=== PATIENT | male | born 1965 | race American Indian/Alaskan Native ===

== ENCOUNTER 2017-03-27 23:20 | Emergency (ER) | payer MEDICAID ==
[2017-03-27 23:26] VITALS: PULSE 65; RESP 16; TEMP 98; O2SAT 100
--- NOTE | 2017-03-27 23:51 | ED PDOC ---
HPI: General Adult Time Seen by Provider: 03/27/17 23:32 Chief Complaint (Nursing): Medical Clearance Chief Complaint (Provider): clearance for incarceration History Per: Patient History/Exam Limitations: no limitations Additional History Per: Patient Additional Complaint(s): 51 y/o male history of heroin abuse (on suboxone) here in police custody for clearance for incarceration. Patient denies acute medical or psychiatric complaints. Past Medical History Reviewed: Historical Data, Nursing Documentation, Vital Signs Vital Signs: Last Vital Signs Temp 98.0 F 03/27/17 23:21 Pulse 65 03/27/17 23:21 Resp 16 03/27/17 23:21 BP 155/87 H 03/27/17 23:21 Pulse Ox 100 03/27/17 23:21 - Medical History PMH: No Chronic Diseases - Surgical History Surgical History: No Surg Hx - Family History Family History: States: No Known Family Hx - Social History Ex-Smoker (has not smoked in the last 12 months): Yes Alcohol: None Drugs: Opiates, Prescription medications - Allergies Allergies/Adverse Reactions: Allergies Allergy/AdvReac Type Severity Reaction Status Date / Time No Known Allergies Allergy Verified 03/27/17 23:21 Review of Systems ROS Statement: Except As Marked, All Systems Reviewed And Found Negative Physical Exam - Reviewed Nursing Documentation Reviewed: Yes Vital Signs Reviewed: Yes - Physical Exam Appears: Positive for: Well, Non-toxic, No Acute Distress Head Exam: Positive for: ATRAUMATIC, NORMAL INSPECTION, NORMOCEPHALIC Skin: Positive for: Normal Color Eye Exam: Positive for: Normal appearance ENT: Positive for: Normal ENT Inspection Cardiovascular/Chest: Positive for: Regular Rate, Rhythm Respiratory: Positive for: Normal Breath Sounds Gastrointestinal/Abdominal: Positive for: Normal Exam Back: Positive for: Normal Inspection Extremity: Positive for: Normal ROM Neurologic/Psych: Positive for: Alert, Oriented - ECG O2 Sat by Pulse Oximetry: 100 Disposition - Clinical Impression Clinical Impression: Medical clearance for incarceration - Patient ED Disposition Is Patient to be Admitted: No Counseled Patient/Family Regarding: Diagnosis, Need For Followup - Disposition Disposition: Routine/Home Disposition Time: 23:52 Condition: STABLE Additional Instructions: Patient medically cleared for incarceration. Instructions: Normal Exam (ED)
[2017-03-28 00:03] VITALS: BP 149/82
== END 2017-03-27 23:56 ==
LOC: EDBD 23:20 → H.ER 23:20
DX: F11.10 Opioid abuse, uncomplicated (principal); Z02.89 Encounter for other administrative examinations; Z87.891 Personal history of nicotine dependence

== ENCOUNTER 2018-02-02 13:46 | Emergency (ER) | payer MEDICAID ==
[2018-02-02 13:53] VITALS: PULSE 59; RESP 18; TEMP 98.1; O2SAT 98
--- NOTE | 2018-02-02 13:53 | ED PDOC ---
HPI: Psych/Substance Abuse Time Seen by Provider: 02/02/18 13:52 Chief Complaint (Provider): clearance History Per: Patient, Other (Police) Additional Complaint(s): 52-year-old male presents to emergency department in police custody for medical and psychiatric clearance. Patient denies any medical or psychiatric complaints at this time. Patient states he is prescribed suboxone and would like to take a dose now. Patient states he has the medication on him and is due for his usual dose at 2 pm. He denies any opiate use, states he has been on suboxone for 2 years and has not used opiates in 2 years. Past Medical History Reviewed: Historical Data, Nursing Documentation, Vital Signs Vital Signs: Last Vital Signs Temp 98.1 F 02/02/18 13:49 Pulse 59 L 02/02/18 13:49 Resp 18 02/02/18 13:49 BP 137/101 H 02/02/18 13:49 Pulse Ox 98 02/02/18 13:49 - Medical History PMH: No Chronic Diseases - Family History Family History: States: No Known Family Hx - Social History Current smoker - smoking cessation education provided: Yes Alcohol: None Drugs: Opiates (h/o abuse, now on suboxone) - Allergies Allergies/Adverse Reactions: Allergies Allergy/AdvReac Type Severity Reaction Status Date / Time No Known Allergies Allergy Verified 02/02/18 13:49 Review of Systems ROS Statement: Except As Marked, All Systems Reviewed And Found Negative Constitutional: Negative for: Fever Cardiovascular: Negative for: Chest Pain Respiratory: Negative for: Cough Gastrointestinal: Negative for: Nausea, Vomiting Psych: Negative for: Suicidal ideation Physical Exam - Reviewed Nursing Documentation Reviewed: Yes Vital Signs Reviewed: Yes - Physical Exam Appears: Positive for: Well, Non-toxic, No Acute Distress Head Exam: Positive for: ATRAUMATIC, NORMAL INSPECTION, NORMOCEPHALIC Skin: Positive for: Normal Color. Negative for: Rash Eye Exam: Positive for: Other (pinpoint pupils) ENT: Positive for: Normal ENT Inspection Cardiovascular/Chest: Positive for: Regular Rate, Rhythm Respiratory: Positive for: Normal Breath Sounds. Negative for: Respiratory Distress Gastrointestinal/Abdominal: Positive for: Normal Exam, Soft. Negative for: Tenderness Extremity: Positive for: Normal ROM Neurologic/Psych: Positive for: Alert, Oriented - ECG O2 Sat by Pulse Oximetry: 98 Pulse Ox Interpretation: Normal Medical Decision Making Medical Decision Makin52 year old here for medical and psychiatric clearance. Plan: Crisis eval As per crisis counselor and psychiatrist detention sergeant Dr. Diaz, patient does not meet criteria for admission and is stable for discharge. On exam patient is falling asleep while being asked questions and is noted to have pinpoint pupils upon examination, which is concerning for possible recent drug abuse. Patient is asking for suboxone dose which he arrives with. Rx box reviewed, rx was filled yesterday for quantity of 60, however box only contains 16 doses. Patient states he takes one dose per day and took his last dose yesterday afternoon. Case was d/w in detail with ED attending, Dr. Lawrence. Ordering UDS was considered however, results are often inconclusive when a patient takes suboxone, therefore in this case there is little diagnostic value to be obtained from UDS. Patient is stable, is not displaying any acute signs of withdrawal. Dr. Lawrence agrees that no suboxone will be given to patient today in ED. Patient was informed of this and was escorted out in police custody. Patient is stable for discharge. Disposition - Clinical Impression Clinical Impression: Substance abuse, Medical clearance for incarceration - Patient ED Disposition Is Patient to be Admitted: No - Disposition Referrals: [facility] [Outside] Disposition: Routine/Home Disposition Time: 14:32 Condition: STABLE Additional Instructions: PATIENT IS MEDICALLY AND PSYCHIATRICALLY STABLE FOR INCARCERATION Instructions: Drug Abuse and Drug Addiction (DC), General (DC)
[2018-02-02 14:45] VITALS: BP 168/97
== END 2018-02-02 15:08 ==
LOC: H.ER 13:46
DX: F19.10 Other psychoactive substance abuse, uncomplicated (principal); Z02.89 Encounter for other administrative examinations; F17.200 Nicotine dependence, unspecified, uncomplicated